=== PATIENT | male | born 1970 | race Caucasian/White ===

== ENCOUNTER 2019-12-25 21:32 | Emergency (ER) | payer BC, SELFPAY ==
[2019-12-25 21:41] VITALS: BP 147/88; PULSE 92; RESP 17; TEMP 36.7; O2SAT 94; BMI 31.0
[2019-12-25 22:06] VITALS: BP 172/93; PULSE 89; RESP 16; O2SAT 96
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
[2019-12-25 22:41] LABS: Basophils % 0.3 %; Eosinophils % 0.4 %; Hematocrit 43.6 % (42.0-52.0); Hemoglobin 14.6 g/dL (11.7-16.6); Lymphocytes # 1.5 10^3/uL (0.8-4.8); Lymphocytes % 16.2 %; Mean Corpuscular HGB Conc 33.5 g/dL (30.0-36.0); Mean Corpuscular Hemoglobin 30.2 pg (28.0-34.0); Mean Corpuscular Volume 90.3 fL (80-94); Mean Platelet Volume 10.3 fL (7.4-10.4); Monocytes % 10.5 %; Neutrophils # 6.79 10^3/uL (1.8-7.7); Neutrophils % 72.4 %; Nucleated Red Blood Cells % 0 %; Platelet Count 200 10^3/cmm (130-400); Red Blood Count 4.83 10^6/uL (4.1-5.3); Red Cell Distribution Width 11.5 % (12.1-15.1); White Blood Count 9.4 10^3/uL (4.0-10.0)
[2019-12-25 22:56] VITALS: RESP 16; O2SAT 94
[2019-12-25] MEDS: fentaNYL 50 mcg/mL INJ 2mL 100 MCG IVP (22:56)
[2019-12-25] MEDS: ondansetron 2 mg/ML SDV 2 mL 4 MG IVP (22:58)
[2019-12-25] MEDS: lactated ringers 1,000 ML 999 ML IV (22:58)
[2019-12-25] MEDS: ketorolac 30 mg/mL INJ IVP (22:58)
[2019-12-25 23:00] VITALS: BP 152/75; PULSE 18; RESP 16; O2SAT 94
[2019-12-25 23:03] LABS: Alanine Aminotransferase 113 U/L (0-41); Albumin Level 4.3 g/dL (3.5-5.2); Alkaline Phosphatase 37 IU/L (40-130); Anion Gap 14.2 (5-19); Aspartate Amino Transferase 73 U/L (0-40); Blood Urea Nitrogen 11 mg/dL (6-20); Calcium 8.6 mg/dL (8.5-10.5); Carbon Dioxide 25 mmol/L (22-29); Chloride 97 mmol/L (98-107); Globulin 2.5 g/dL (1.3-4.6); Glomerular Filtration Rate 102.7 mL/min (90-130); Glucose 150 mg/dL (65-115); Osmolality Calculated 273 mOsm/kg (285-295); Potassium 4.2 mmol/L (3.5-5.1); Sodium 132 mmol/L (136-145); Total Protein 6.8 g/dL (6.6-8.7)
[2019-12-25] MEDS: iohexol 300 mg/mL 100 mL Btl IV (23:24)
[2019-12-26] VITALS: BP 119/81; PULSE 67; RESP 16; O2SAT 96
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
[2019-12-26] MEDS: HYDROcodone-acetaminophen 5-325 mg Tablet 3 TAB PO (01:03)
[2019-12-26 01:06] VITALS: BP 119/82; PULSE 72; RESP 16; O2SAT 99
== END 2019-12-26 01:10 | disposition home or self-care (01) ==
PROVIDERS: Emergency Provider Emergency Medicine
DX: S76.312A Strain of muscle, fascia and tendon of the posterior muscle group at thigh level, left thigh, initial encounter (principal); V86.59XA Driver of other special all-terrain or other off-road motor vehicle injured in nontraffic accident, initial encounter
CPT/HCPCS: 12345; 29530; 72193; 73701; 80053; 85025; 96365; 96375; 99283; 99284; E0114; J1885; J2405; J3010; Q9967